=== PATIENT | female | born 1970 | race Caucasian/White ===

== ENCOUNTER 2017-09-27 21:30 | Emergency (ER) | payer BC, OTHER ==
[~2017-09-27 21:30] MED LIST: CLOPIDOGREL BISULFATE 300 MG TABLET ONE; ENOXAPARIN SODIUM INJ 30 MG/0.3 ML DISP.SYRIN ONE; TENECTEPLASE INJ 50 MG KIT IV ONE
--- NOTE | 2017-09-27 21:42 | ER Document Report ---
ED Cardiac - General Stated Complaint: CHEST PAIN Time Seen by Provider: 09/27/17 21:41 Notes: 47-year-old female patient. No past medical history. Former smoker. Family history of sudden NM and cardiac arrest who developed sudden onset of chest pain shortly prior to EMS arrival. Began to feel chest pain and shortness of breath. No recent surgeries. Has had some cramping in her calves bilaterally. Recently had a trip to [place] but that is only approximately 6 hours away. States that she just arrived from [place] today and set down began to have chest pain. Pain was in the central portion of her chest. Nonradiating. Sharp in nature. Medics arrived started chest pain protocol. Aspirin, nitro glycerin given. - HPI Patient complains to provider of: Chest pain Past Medical History - General Information source: Patient - Social History Smoking Status: Former Smoker Frequency of alcohol use: Occasional Drug Abuse: None Lives with: Family Family History: CAD - Past Medical History Cardiac Medical History: Reports: None Pulmonary Medical History: Reports: None EENT Medical History: Reports: None Neurological Medical History: Reports: None Endocrine Medical History: Reports: None Renal/ Medical History: Reports: None Malignancy Medical History: Reports: None GI Medical History: Reports: None Musculoskeltal Medical History: Reports None Skin Medical History: Reports None Psychiatric Medical History: Reports: Hx Depression Traumatic Medical History: Reports: None Infectious Medical History: Reports: None Review of Systems - Review of Systems Constitutional: denies: Diaphoresis, Fever, Malaise, Weakness EENT: denies: Blurred vision, Double vision, Difficulty swallowing, Throat swelling, Mouth pain Cardiovascular: Chest pain, Palpitations. denies: Heart racing, Orthopnea, Dyspnea, Syncope, Dizziness, Lightheaded Respiratory: denies: Cough, Hurts to breathe, Hemoptysis, Short of breath Gastrointestinal: denies: Abdominal pain, Diarrhea, Nausea Genitourinary: denies: Burning, Dysuria, Discharge Female Genitourinary: Post menopausal. denies: Heavy/abnormal periods, Irregular period, Vaginal discharge Musculoskeletal: denies: Back pain, Gout, Joint pain Skin: denies: Dryness, Lesions, Rash Hematologic/Lymphatic: denies: Anemia, Blood clots, Easy bleeding, Easy bruising Neurological/Psychological: denies: Confusion, Dementia, Weakness, Gait changes Physical Exam - Vital signs Vitals: Resp 21 H 09/27/17 21:32 Interpretation: Tachycardic - General General appearance: Appears well, Alert, Anxious In distress: Mild - HEENT Head: Normocephalic, Atraumatic Eyes: Normal Pupils: PERRL - Respiratory Respiratory status: No respiratory distress Chest status: Nontender Breath sounds: Normal Chest palpation: Normal - Cardiovascular Rhythm: Tachycardia Heart sounds: Normal auscultation Murmur: No - Abdominal Inspection: Normal Distension: No distension Bowel sounds: Normal Tenderness: Nontender Organomegaly: No organomegaly - Back Back: Normal, Nontender - Extremities General upper extremity: Normal inspection, Nontender, Normal color, Normal ROM , Normal temperature General lower extremity: Normal inspection, Nontender, Normal color, Normal ROM , Normal temperature, Normal weight bearing. No: Micah's sign - Neurological Neuro grossly intact: Yes Cognition: Normal Orientation: AAOx4 Dereck Coma Scale Eye Opening: Spontaneous Dereck Coma Scale Verbal: Oriented Dereck Coma Scale Motor: Obeys Commands Dereck Coma Scale Total: 15 Speech: Normal Motor strength normal: LUE, RUE, LLE, RLE Sensory: Normal - Psychological Associated symptoms: Normal affect, Normal mood - Skin Skin Temperature: Warm Skin Moisture: Dry Skin Color: Normal Course - Re-evaluation Re-evalutation: 09/27/17 21:46 47-year-old female with no significant past medical history other than family history inform history of smoking. Initial EKG performed. No evidence of ST segment elevation or depression on the new EKG. EKG obtained from paramedics were reviewed. No significant signs of ischemia on EMS rhythm strips. Medical direction given to follow protocol when EMS called in. Patient was greeted immediately on arrival. We will continue with chest pain protocol at this time. Anticipate possible admit. We will add d-dimer based on this recent long trip and reported calf pain with sudden onset of chest pain and shortness of breath. 09/27/17 23:10 Patient began complaining of chest pain again. Second EKG was ordered. EKG #2 showed [address] segment elevation and V1, V2, V3 as well as V5. This is changed from first EKG. At the same time labs are resulted with a panic troponin of 0.30. Decision was made at that time that this is a STEMI. STEMI protocol was activated. Patient was verbally consented in the presence of family members with regards to the risks and benefits of thrombolysis. Patient verbally consented to thrombolyzes. Consulted with manager talent acquisition at [facility] in [facility], Dr. Abdul. 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 Patient in stable condition. 09/27/17 23:11 Laboratory 09/27/17 09/27/17 09/27/17 21:35 21:35 21:35 WBC 11.5 H RBC 4.87 Hgb 14.2 Hct 42.0 MCV 86 MCH 29.1 MCHC 33.7 RDW 13.9 Plt Count 491 H Seg Neutrophils % 56.4 Lymphocytes % 32.1 Monocytes % 7.2 Eosinophils % 2.6 Basophils % 1.7 Absolute Neutrophils 6.5 Absolute Lymphocytes 3.7 Absolute Monocytes 0.8 Absolute Eosinophils 0.3 Absolute Basophils 0.2 D-Dimer Sodium 144.0 Potassium 3.7 Chloride 109 H Carbon Dioxide 22 Anion Gap 13 BUN 15 Creatinine 0.69 Est GFR ( Amer) > 60 Est GFR (Non-Af Amer) > 60 Glucose 112 H Calcium 10.2 Total Bilirubin 0.2 Direct Bilirubin 0.2 Neonat Total Bilirubin Not Reportable Neonat Direct Bilirubin Not Reportable Neonat Indirect Bili Not Reportable AST 74 H ALT 42 Alkaline Phosphatase 122 Creatine Kinase 67 CK-MB (CK-2) 1.64 Troponin I 0.308 Total Protein 7.3 Albumin 4.7 Urine Color Urine Appearance Urine pH Ur Specific Butler Urine Protein Urine Glucose (UA) Urine Ketones Urine Blood Urine Nitrite Urine Bilirubin Urine Urobilinogen Ur Leukocyte Esterase Urine WBC (Auto) Urine RBC (Auto) Squamous Epi Cells Auto Urine Mucus (Auto) Urine Ascorbic Acid Urine HCG, Qual Urine Opiates Screen Urine Methadone Screen Ur Barbiturates Screen Ur Phencyclidine Scrn Ur Amphetamines Screen U Benzodiazepines Scrn Urine Cocaine Screen U Marijuana (THC) Screen 09/27/17 09/27/17 09/27/17 21:35 21:40 21:40 WBC RBC Hgb Hct MCV MCH MCHC RDW Plt Count Seg Neutrophils % Lymphocytes % Monocytes % Eosinophils % Basophils % Absolute Neutrophils Absolute Lymphocytes Absolute Monocytes Absolute Eosinophils Absolute Basophils D-Dimer 0.35 Sodium Potassium Chloride Carbon Dioxide Anion Gap BUN Creatinine Est GFR ( Amer) Est GFR (Non-Af Amer) Glucose Calcium Total Bilirubin Direct Bilirubin Neonat Total Bilirubin Neonat Direct Bilirubin Neonat Indirect Bili AST ALT Alkaline Phosphatase Creatine Kinase CK-MB (CK-2) Troponin I Total Protein Albumin Urine Color COLORLESS Urine Appearance CLEAR Urine pH 8.0 Ur Specific Butler 1.005 Urine Protein NEGATIVE Urine Glucose (UA) NEGATIVE Urine Ketones NEGATIVE Urine Blood NEGATIVE Urine Nitrite NEGATIVE Urine Bilirubin NEGATIVE Urine Urobilinogen NEGATIVE Ur Leukocyte Esterase NEGATIVE Urine WBC (Auto) 0 Urine RBC (Auto) 0 Squamous Epi Cells Auto <1 Urine Mucus (Auto) RARE Urine Ascorbic Acid NEGATIVE Urine HCG, Qual NEGATIVE Urine Opiates Screen NEGATIVE Urine Methadone Screen NEGATIVE Ur Barbiturates Screen NEGATIVE Ur Phencyclidine Scrn NEGATIVE Ur Amphetamines Screen NEGATIVE U Benzodiazepines Scrn NEGATIVE Urine Cocaine Screen NEGATIVE U Marijuana (THC) Screen NEGATIVE Chest X-Ray 09/27/17 00:00 IMPRESSION: NO ACUTE RADIOGRAPHIC FINDING IN THE CHEST. - Vital Signs Vital signs: Temp Pulse Resp BP Pulse Ox 97.9 F 80 18 149/84 H 98 09/27/17 22:00 09/27/17 22:00 09/27/17 22:01 09/27/17 22:01 09/27/17 22:01 - Laboratory Result Diagrams: 09/27/17 21:35 09/27/17 21:35 Laboratory results interpreted by me: 09/27/17 09/27/17 21:35 21:35 WBC 11.5 H Plt Count 491 H Chloride 109 H Glucose 112 H AST 74 H - EKG Interpretation by Tn EKG shows normal: [place], Intervals, QRS Complexes, ST-T Waves Rate: Tachycardia Critical Care Note - Critical Care Note Total time excluding time spent on procedures (mins): 60 Comments: Acute NM, thrombolysis, consultation with specialists Discharge - Discharge Clinical Impression: Acute ST segment elevation NM Qualifiers: Involved coronary artery: other anterior wall coronary artery Qualified Code(s) : I21.09 - ST elevation (STEMI) myocardial infarction involving other coronary artery of anterior wall Disposition: [facility] Admitting Provider: Franko
[2017-09-27 21:49] LABS: ABSOLUTE BASOPHILS # (AUTO) 0.2 10^3/uL (0.0-0.2); ABSOLUTE EOSINOPHILS # (AUTO) 0.3 10^3/uL (0.0-0.6); ABSOLUTE LYMPHOCYTES (AUTO) 3.7 10^3/uL (0.5-4.7); ABSOLUTE MONOCYTES (AUTO) 0.8 10^3/uL (0.1-1.4); ABSOLUTE NEUT (AUTO) 6.5 10^3/uL (1.7-8.2); BASOPHILS % (AUTO) 1.7 % (0-2); EOSINOPHILS % (AUTO) 2.6 % (0-6); HEMOGLOBIN 14.2 g/dL (12.0-15.5); LYMPHOCYTES % (AUTO) 32.1 % (13-45); MEAN CORPUSCULAR HEMOGLOBIN 29.1 pg (27.0-33.4); MEAN CORPUSCULAR HGB CONC 33.7 g/dL (32.0-36.0); MEAN CORPUSCULAR VOLUME 86 fl (80-97); MONOCYTES % (AUTO) 7.2 % (3-13); PLATELET COUNT 491 10^3/uL (150-450); RED BLOOD COUNT 4.87 10^6/uL (3.72-5.28); RED CELL DISTRIBUTION WIDTH 13.9 % (11.5-14.0); SEGMENTED NEUTROPHILS % (AUTO) 56.4 % (42-78); TOTAL CELLS COUNTED % (AUTO) 100 %; WHITE BLOOD COUNT 11.5 10^3/uL (4.0-10.5)
[2017-09-27 21:59] LABS: ALANINE AMINOTRANSFERASE 42 U/L (9-52); ALBUMIN 4.7 g/dL (3.5-5.0); ALKALINE PHOSPHATASE 122 U/L (38-126); ANION GAP 13 (5-19); ASPARTATE AMINO TRANSFERASE 74 U/L (14-36); BILIRUBIN,DIRECT 0.2 mg/dL (0.0-0.4); BILIRUBIN,TOTAL 0.2 mg/dL (0.2-1.3); BLOOD UREA NITROGEN 15 mg/dL (7-20); CALCIUM 10.2 mg/dL (8.4-10.2); CARBON DIOXIDE 22 mmol/L (22-30); CHLORIDE 109 mmol/L (98-107); CREATINE KINASE 67 U/L (30-135); GLUCOSE 112 mg/dL (75-110); TOTAL PROTEIN 7.3 g/dL (6.3-8.2)
[2017-09-27 22:04] LABS: POTASSIUM 3.7 mmol/L (3.6-5.0)
[2017-09-27 22:10] LABS: CREATINE KINASE MB 1.64 ng/mL (<4.55)
[2017-09-27 22:15] LABS: APPEARANCE,URINE CLEAR; BILIRUBIN,URINE NEGATIVE (NEGATIVE); COLOR,URINE COLORLESS; GLUCOSE, URINE NEGATIVE (NEGATIVE); KETONES,URINE NEGATIVE (NEGATIVE); LEUKOCYTE ESTERASE,URINE NEGATIVE (NEGATIVE); NITRITE,URINE NEGATIVE (NEGATIVE); PROTEIN,URINE NEGATIVE (NEGATIVE); URINE SPECIFIC GRAVITY 1.005; UROBILINOGEN,URINE NEGATIVE mg/dL (<2.0)
[2017-09-27 22:26] LABS: TROPONIN I 0.308 ng/mL
[2017-09-27 22:49] LABS: URINE AMPHETAMINES SCREEN NEGATIVE; URINE BARBITURATES SCREEN NEGATIVE; URINE BENZODIAZEPINES SCREEN NEGATIVE; URINE MARIJUANA (THC) SCREEN NEGATIVE; URINE METHADONE SCREEN NEGATIVE; URINE PHENCYCLIDINE SCREEN NEGATIVE
--- NOTE | 2017-09-27 22:51 | RADIOLOGY REPORT (SQ) ---
EXAM DESCRIPTION: CHEST SINGLE VIEW COMPLETED DATE/TIME: 09/27/2017 10:39 pm REASON FOR STUDY: CHEST PAIN COMPARISON: None. EXAM PARAMETERS: NUMBER OF VIEWS: One view. TECHNIQUE: Single frontal radiographic view of the chest acquired. RADIATION DOSE: NA LIMITATIONS: None. FINDINGS: LUNGS AND PLEURA: No opacities, masses or pneumothorax. No pleural effusion. MEDIASTINUM AND HILAR STRUCTURES: No masses. Contour normal. HEART AND VASCULAR STRUCTURES: Heart normal in size. Normal vasculature. BONES: No acute findings. HARDWARE: None in the chest. OTHER: No other significant finding. IMPRESSION: NO ACUTE RADIOGRAPHIC FINDING IN THE CHEST. TECHNICAL DOCUMENTATION: JOB ID: [id number] [employer]- All Rights Reserved
[2017-09-27 23:09] LABS: URINE COCAINE SCREEN NEGATIVE
[2017-09-27 23:37] VITALS: BP 164/104
--- NOTE | 2017-09-28 12:00 | EKG REPORT ---
SEVERITY:- BORDERLINE ECG - SINUS RHYTHM BORDERLINE R WAVE PROGRESSION, ANTERIOR LEADS MINIMAL ST ELEVATION, ANTERIOR LEADS : Confirmed by: Jordyn Oscar MD 28-Sep-2017 12:00:11
--- NOTE | 2017-09-28 12:00 | EKG REPORT ---
SEVERITY:- BORDERLINE ECG - SINUS TACHYCARDIA PROBABLE LEFT ATRIAL ABNORMALITY BORDERLINE R WAVE PROGRESSION, ANTERIOR LEADS : Confirmed by: Jordyn Oscar MD 28-Sep-2017 12:00:17
== END 2017-09-27 23:27 | disposition short-term general hospital (02) ==
LOC: ER 21:30
DX: I21.3 ST elevation (STEMI) myocardial infarction of unspecified site (principal); R07.9 Chest pain, unspecified; R06.02 Shortness of breath; R25.2 Cramp and spasm; Z87.891 Personal history of nicotine dependence; Z82.49 Family history of ischemic heart disease and other diseases of the circulatory system
CPT/HCPCS: 93005 ×2; 99291; 36415; 82553; 82550; 85025; 81025; 80053; 81001; 84484; 80307; 85379; 71045; 93010; J3101; J3490; J1650